=== PATIENT | female | born 1990 | race Hispanic/Latino ===

== ENCOUNTER 2017-05-03 17:52 | Emergency (ER) | payer OTHER ==
[2017-05-03 18:24] VITALS: TEMP 98.6
[2017-05-03 19:22] VITALS: BP 117/63; PULSE 81; RESP 14; O2SAT 100
[2017-05-03] MEDS ORDERED: Morphine 4 MG/ML VIAL IM STA (19:46)
--- NOTE | 2017-05-03 19:54 | ED PDOC ---
HPI: Back Time Seen by Provider: 05/03/17 18:42 Chief Complaint (Nursing): Back Pain Chief Complaint (Provider): Acute onset of worsening low back pain History Per: Patient History/Exam Limitations: no limitations Onset/Duration Of Symptoms: Hrs Current Symptoms Are (Timing): Still Present Full Body Front + Back: 1 - Pain Quality Of Discomfort: Sharp Description Of Injury (Context): Straining during BM Additional Complaint(s): 26 yo obese female with history of lamectomy presents with acute onset of worseing right sided low back pain with tinging down the right leg. PT states last night she was straining because she was constipated and had acute onset of low back pain, going down the right leg. Pt took naproxen, flexeril and tramadol which did not help the pain. Pt reports tingling of right leg, no saddle horse anesthesia, no bowel or bladder incontinence. No fever/chills. Past Medical History Reviewed: Historical Data, Nursing Documentation, Vital Signs Vital Signs: Last Vital Signs Temp 98.6 F 05/03/17 18:21 Pulse 81 05/03/17 19:21 Resp 14 05/03/17 19:21 BP 117/63 05/03/17 19:21 Pulse Ox 100 05/03/17 19:21 - Medical History PMH: Asthma - Surgical History Surgical History: No Surg Hx - Family History Family History: States: Unknown Family Hx - Living Arrangements Living Arrangements: With Family - Social History Current smoker - smoking cessation education provided: No - Immunization History Hx Tetanus Toxoid Vaccination: No Hx Influenza Vaccination: Yes Hx Pneumococcal Vaccination: No - Home Medications Home Medications: Ambulatory Orders Medication Instructions Recorded Albuterol HFA [Ventolin HFA 90 2 puff IH [id number] PRN 09/03/14 mcg/actuation (8 g)] Budesonide/Formoterol Fumarate 09/03/14 [Symbicort] Ibuprofen [Motrin] 600 mg PO Q6 #30 tab 09/03/14 Ciprofloxacin [Cipro] 500 mg PO BID #10 tab 05/14/16 - Allergies Allergies/Adverse Reactions: Allergies Allergy/AdvReac Type Severity Reaction Status Date / Time shellfish derived Allergy SWELLING Verified 05/03/17 18:21 Review of Systems ROS Statement: Except As Marked, All Systems Reviewed And Found Negative Constitutional: Negative for: Fever, Chills Respiratory: Negative for: Cough Gastrointestinal: Negative for: Diarrhea, Constipation, Rectal Pain Musculoskeletal: Positive for: Back Pain, Leg Pain Physical Exam - Reviewed Nursing Documentation Reviewed: Yes Vital Signs Reviewed: Yes - Physical Exam Appears: Positive for: Well, Non-toxic, No Acute Distress Head Exam: Positive for: ATRAUMATIC, NORMAL INSPECTION, NORMOCEPHALIC Skin: Positive for: Normal Color, Warm, DRY Eye Exam: Positive for: Normal appearance ENT: Positive for: Normal ENT Inspection Neck: Positive for: Normal, Painless ROM Cardiovascular/Chest: Positive for: Regular Rate, Rhythm Respiratory: Positive for: Normal Breath Sounds. Negative for: Accessory Muscle Use, Respiratory Distress Gastrointestinal/Abdominal: Positive for: Normal Exam, Bowel Sounds, Soft. Negative for: Tenderness Back: Positive for: Normal Inspection, Vertebral Tenderness Extremity: Positive for: Normal ROM Neurologic/Psych: Positive for: Alert, Oriented - ECG O2 Sat by Pulse Oximetry: 100 Medical Decision Making Medical Decision Making: Endorsed pending CT LS Disposition - Clinical Impression Clinical Impression: Acute back pain - Patient ED Disposition Is Patient to be Admitted: Transfer of Care - Disposition Disposition: Transfer of Care Disposition Time: 19:55 Condition: STABLE
--- NOTE | 2017-05-03 21:27 | ED PDOC ---
"- ECG O2 Sat by Pulse Oximetry: 100 - Progress ED Course And Treament: IMPRESSION: 1. Status post L4 laminectomy with likely intervening granulation tissue. 2. Subcutaneous scarring with possible small amount of intervening fluid, within the subcutaneous fat. This may represent granulation tissue versus a resolving superficial hematoma or seroma. PATITO RIVAS | Preliminary Radiology Report TUBING TESTER (QA) DISCREPANCY? If there is a discrepancy between the preliminary and final interpretation, please notify [facility] via [email or web address]. If you do not have access to our QA portal, call our QA team at [phone] CONFIDENTIALITY STATEMENT This report is intended only for the use of the referring physician, and only in accordance with law, If you received this in error, call [phone] Page 2 of 2 Evolving or resolving infection could have a similar appearance in the appropriate clinical setting. Correlate with history, examination findings, and prior imaging if available. 3. 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 4. Mild degenerative disc disease at L3-4 and L4-5 as described above. No evidence of canal stenosis. 5. Mild bilateral neural foraminal narrowing at L4-5. Thank you for allowing us to participate in the care of your patient. Dictated and Authenticated by: Christiano Gutierrez DO Patient re-examined. improved with morphine 4mg but notes persistent pain. Has appointment with pain management tomorrow. Will give valium 5 mg here. Advised continuing naproxen 500mg bid. Disposition - Clinical Impression Clinical Impression: Acute back pain - POA Present On Arrival: None - Disposition Disposition: Routine/Home Disposition Time: 21:45 Condition: FAIR Prescriptions: diaZEpam [Valium] 5 mg PO Q6 PRN #4 tab PRN Reason: Muscle Spasm Instructions: Sciatica (ED), Acute Low Back Pain (ED) Forms: [employer] ([place]), [facility] School/Work Excuse"
--- NOTE | 2017-05-04 10:58 | CT ---
PROCEDURE: CT Lumbar Spine without contrast HISTORY: Low back pain; history of surgery COMPARISON: No prior TECHNIQUE: Axial computed tomography images were obtained of the lumbar spine without the use of intravenous contrast. Coronal and sagittal reformatted images were created and reviewed. Radiation dose: Total exam DLP = 1450.09 mGy-cm. This CT exam was performed using one or more of the following dose reduction techniques: Automated exposure control, adjustment of the mA and/or kV according to patient size, and/or use of iterative reconstruction technique. FINDINGS: VERTEBRAE: No acute compression fractures no retropulsed fragments. . Bilateral laminectomy defects seen at the L4-L5 with partial inferior bilateral laminectomy changes the inferior L3-L4 levels. . Vertebral bodies exhibit normal stature. Scarring changes seen within the posterior paraspinal soft tissues. Vertebral bodies and facets normally aligned. . Note that there appears to be a transitional vertebral body segment that probably represents stabilization of the L5 segment. This will be named L5 level 4 level in purposes. DISCS/SPINAL CANAL/NEURAL FORAMINA: L1-2: Adequate disc height. Minimal bulge of the posterior annulus. Central canal and exit foramina appear adequate. L2-3: Adequate disc height. Minimal bulge of the posterior annulus. . Central canal and exit foramina adequate. The the the. L3-4: Disc space height maintained. Mild broad-based bulge of the posterior annulus asymmetrically larger on the right than the left. The overall central canal appears adequate in part due to partial inferior laminectomy defects at this level. . L4-5: disc space height maintained. Bilateral laminectomy defects. Small to medium-sized central and bilateral disc herniation. The canal contents are poorly visualized not at this level though there may be some compressive effects on the ventral surface of the thecal sac. Facets are mildly prominent. Central canal appears adequate given the laminectomy defect. Exit foramina are also adequate. L5-S1: Disc space appears somewhat narrowed though this is felt to be an anatomic variation. . No disc herniation or significant disc bulge so far as can be seen. The canal is mildly narrowed though commensurate with the small size of the thecal sac. Facets are slightly prominent. Exit foramina adequate. PARASPINAL SOFT TISSUES: Unremarkable. OTHER FINDINGS: None. IMPRESSION: Bilateral laminectomy defects L4-L5 and inferior laminectomy defects L3-L4 level. There appears to be a small central and bilateral disc herniation L4 L5 level presumably resulting in some mild compressive effects on the ventral surface of the thecal sac however the canal contents poorly seen at this level. . There is also minor disc bulging changes seen at the L3-L4 level. See above discussion for additional details and findings. Seen at the
== END 2017-05-03 23:03 | disposition home or self-care (01) ==
LOC: H.ER 17:52
DX: M54.31 Sciatica, right side (principal); E66.9 Obesity, unspecified; J45.909 Unspecified asthma, uncomplicated; K59.00 Constipation, unspecified
CPT/HCPCS: 72131; 81025; 96372; 99283; J2270